=== PATIENT | female | born 1960 | race African-American/Black ===

== ENCOUNTER 2020-12-17 19:49 | Emergency (ER) | payer OTHER ==
[~2020-12-17] VITALS: Ht 157.5 cm; Wt 54.0 kg
[2020-12-17 20:24] LABS: ABSOLUTE NEUTROPHILS 3.3 thou/uL (1.4-8.2); BASOPHILS 0.9 % (0.0-2.0); EOSINOPHILS 0.9 % (0.0-3.0); HEMOGLOBIN 11.8 gm/dL (12.0-15.0); LYMPHOCYTES 30.9 % (24.0-44.0); MCH 29.7 pg (26.0-34.0); MCHC 33.6 g/dL (28.0-37.0); MCV 88.2 fL (80.0-100.0); MONOCYTES 6.9 % (1.0-8.0); PLATELET COUNT 231 thou/uL (150-400); POLYS 60.4 % (36.0-66.0); RBC 3.97 mil/uL (4.20-5.00); RDW 14.3 % (10.5-14.5); WBC 5.4 thou/uL (4.0-11.0)
[2020-12-17 20:25] LABS: URINE BILIRUBIN NEGATIVE (Negative); URINE BLOOD 2+ (Negative); URINE CLARITY CLEAR; URINE COLOR YELLOW; URINE GLUCOSE-RANDOM* NEGATIVE (Negative); URINE KETONES NEGATIVE (Negative); URINE LEUKOCYTES-REFLEX 1+ (Negative); URINE NITRITE-REFLEX NEGATIVE (Negative); URINE PROTEIN (DIPSTICK) NEGATIVE (Negative); URINE UROBILINOGEN 0.2 E.U./dl (0.2-1.0)
[2020-12-17 20:31] LABS: ANION GAP 9 mmol/L (7-16); BUN 15 mg/dL (7-18); CHLORIDE 103 mmol/L (98-107); CO2 27 mmol/L (21-32); CREATININE 0.7 mg/dL (0.6-1.0); GLUCOSE 103 mg/dL (74-106); POTASSIUM 3.2 mmol/L (3.5-5.1); SODIUM 139 mmol/L (136-145)
[2020-12-17 20:41] LABS: ALBUMIN 4.2 g/dL (3.4-5.0); SGOT 14 U/L (15-37); SGPT 20 U/L (14-59); TOTAL BILIRUBIN 0.4 mg/dL (0.2-1.0); TOTAL PROTEIN 7.5 g/dL (6.4-8.2); TROPONIN-I <0.06 ng/mL (<0.06)
[2020-12-17 20:54] LABS: BACTERIA-REFLEX 1-9 Few /HPF (None Seen); CASTS None Seen /LPF (None Seen); CRYSTALS None Seen /LPF (None Seen); MUCUS 0-3 Light strn/LPF (None Seen); SQUAMOUS 0-3 Few /LPF (0-3); URINE RBC 3-10 Few /HPF (0-2); URINE WBC-REFLEX 6-15 Few /HPF (0-5)
[2020-12-17] MEDS ORDERED: KEFLEX500 M1 PO (21:15)
[2020-12-17] MEDS ORDERED: PREDNISONE 20 M20 M1 PO (21:15)
[2020-12-17 21:25] VITALS: BP 157/80
[2020-12-17] MEDS ORDERED: HYDROXYZINE HCL25 M2 PO (21:57)
[2020-12-17] MEDS ORDERED: LISINOPRIL-HCT1 EAC2 PO (21:58)
--- NOTE | 2020-12-18 07:20 | EKG ---
[address] [place] [address] ELECTROCARDIOGRAM REPORT Name: WALI CHAPIN [facility]: [facility] [id number] Admission: 12/17/20 Attend Phys: Discharge: 12/17/20 Date of : 62 Report #: [id number] [facility] ED Test Date: 2020-12-17 Test Time: 20:25:21 Pat Name: WALI CHAPIN Department: Room: Gender: F Chief Human Resources Officer: anastasia klein : 1960 Requested By: Navneet Sanches Order Number: [id number] MD: Lincoln Rankin Measurements Intervals [place] Rate: 67 P: 8 TX: 162 QRS: -10 QRSD: 94 T: 36 QT: 408 QTc: 431 Interpretive Statements Sinus rhythm No previous ECG available for comparison Electronically Signed On 12-18-2020 7:20:25 [employer] by Lincoln Rankin [email or web address] <ELECTRONICALLY SIGNED> By: Lincoln Rankin MD, [facility] 12/18/20719 24 24 Lincoln Rankin MD, FACC /EPI
== END 2020-12-17 22:07 | disposition home or self-care (01) ==
LOC: ER 19:49
PROVIDERS: Emergency Medicine
DX: N39.0 Urinary tract infection, site not specified (principal); R42 Dizziness and giddiness; I10 Essential (primary) hypertension; Z88.5 Allergy status to narcotic agent; Z79.899 Other long term (current) drug therapy